=== PATIENT | female | born 1995 | race Caucasian/White ===

== ENCOUNTER 2019-12-01 01:38 | Emergency (ER) | payer BC ==
--- NOTE | 2019-12-01 02:14 | ERPHSYRPT ---
- History of Present Illness Time Seen by Provider: 12/01/19 02:13 Source: patient Exam Limitations: no limitations Timing/Duration: week(s) (3), gradual onset, worse Cough Quality/Degree: moderate, dry cough Possible Cause: no prior episodes Modifying Factors: Improves With: lying down Associated Symptoms: denies symptoms Allergies/Adverse Reactions: No Known Drug Allergies Allergy (Unverified 09/17/14 07:01) Home Medications: Dextroamphetamine/Amphetamine [Adderall 20 mg Tablet] 20 mg PO BID 09/17/14 [History] Hx Tetanus, Diphtheria Vaccination/Date Given: Yes Hx Influenza Vaccination/Date Given: No Hx Pneumococcal Vaccination/Date Given: No - Review of Systems Constitutional: No Symptoms Eyes: No Symptoms Ears, Nose, & Throat: No Symptoms Respiratory: Cough Cardiac: No Symptoms Abdominal/Gastrointestinal: No Symptoms Genitourinary Symptoms: No Symptoms Musculoskeletal: No Symptoms Skin: No Symptoms Neurological: No Symptoms Psychological: No Symptoms - Past Medical History Pertinent Past Medical History: No - Past Surgical History Past Surgical History: No - Social History Smoking Status: Never smoker Exposure to second hand smoke: No Drug Use: none Patient Lives Alone: No - Nursing Vital Signs Nursing Vital Signs: Initial Vital Signs Temperature 97.7 F 12/01/19 01:59 Pulse Rate 67 12/01/19 01:59 Respiratory Rate 16 12/01/19 01:59 Blood Pressure 123/75 12/01/19 01:59 O2 Sat by Pulse Oximetry 100 12/01/19 01:59 Pain Scale Pain Intensity 0 - Physical Exam General Appearance: no apparent distress Eye Exam: PERRL/EOMI, eyes nml inspection Ears, Nose, Throat Exam: normal ENT inspection, TMs normal, pharyngeal erythema Neck Exam: normal inspection, non-tender, supple, full range of motion Respiratory Exam: normal breath sounds, lungs clear Cardiovascular Exam: regular rate/rhythm, normal heart sounds Back Exam: normal inspection Extremity Exam: normal inspection, normal range of motion Neurologic Exam: alert, oriented x 3, cooperative Skin Exam: normal color SpO2 Interpretation: normal O2 Delivery: Room Air Ordered Tests: Active Orders 24 hr Category Date Time Status CHEST 2 VIEWS (PA AND LAT) Stat Exams 12/01/19 03:00 Taken Medication Summary Discontinued Medications Generic Name Dose Route Start Last Admin Trade Name Freq PRN Reason Stop Dose Admin Hydrocodone Bitart/Acetaminophen 15 ml 12/01/19 02:11 12/01/19 02:18 Hydrocodone-Acetamin 2.5-108/5 Ml Solution PO 12/01/19 02:12 15 ml STAT STA Administration Hydrocodone Bitart/Acetaminophen Confirm 12/01/19 02:17 Hydrocodone-Acetamin 2.5-108/5 Ml Solution Administered 12/01/19 02:18 Dose 15 ml .ROUTE .STK-MED ONE - Departure Departure Disposition: Home Clinical Impression: Bronchitis Condition: Stable Critical Care Time: No Referrals: KATIA ARCINIEGA [Primary Care Provider] - Follow Up with PCP/3 days Instructions: Cough, Adult (DC) Additional Instructions: Use Tylenol/ibuprofen along with [id number] cough syrup. Continue with antibiotics. Follow-up with primary care for reevaluation. Return to ER for any worsening. Prescriptions: Benzonatate [Tessalon Perle] 200 mg PO TID #12 capsule Azithromycin 250 mg [Zithromax 250 MG TABLET] 250 mg PO ZPACK #6 tablet
[2019-12-01] MEDS ORDERED: HYDROCODONE-ACETAMIN 2.5-108/5 ML SOLUTION ONE (02:17)
[2019-12-01] MEDS: HYDROCODONE-ACETAMIN 2.5-108/5 ML SOLUTION PO STA (02:18)
[2019-12-01 03:33] VITALS: O2SAT 99
[2019-12-01 03:57] VITALS: BP 112/65; PULSE 52
--- NOTE | 2019-12-01 07:18 | XRAY ---
Indication: Cough. Comparison: October 30, 2010. PA/lateral chest again demonstrates normal heart, lungs, and bony thorax.
== END 2019-12-01 04:00 | disposition home or self-care (01) ==
LOC: ED 01:38
DX: J40 Bronchitis, not specified as acute or chronic (principal)
CPT/HCPCS: 71046; 99283; A9270-GY